=== PATIENT | female | born 1945 | race Caucasian/White ===

== ENCOUNTER 2024-03-15 14:57 | Emergency (ER) | payer MEDICARE, BC ==
[~2024-03-15] VITALS: Ht 165.1 cm; Wt 94.0 kg
[~2024-03-15 14:57] MED LIST: BIMA2.5D EACHEYE; CHOL200016 PO; CYAN100097 PO; ENAL-78 PO; ENOX40SY7 SQ; FISH1CAP15 PO; FURO80TA87 PO; GLYB5TAB7 PO; LEVO88TA39 PO; LORA-512 PO; METF-900 PO; NABU-139 PO; PIOG45TA65 PO; POTA-366 PO; SIMV-42 PO
[2024-03-15 17:43] VITALS: BP 148/83; PULSE 90; RESP 14; O2SAT 99
[2024-03-15 17:56] VITALS: TEMP 98
== END 2024-03-15 17:59 | disposition home or self-care (01) ==
LOC: ER 14:58
DX: S20.212A Contusion of left front wall of thorax, initial encounter (principal); S80.02XA Contusion of left knee, initial encounter; S09.90XA Unspecified injury of head, initial encounter; Z88.2 Allergy status to sulfonamides; Z88.0 Allergy status to penicillin; Z91.018 Allergy to other foods; W01.0XXA Fall on same level from slipping, tripping and stumbling without subsequent striking against object, initial encounter; Y93.89 Activity, other specified; Y92.000 Kitchen of unspecified non-institutional (private) residence as the place of occurrence of the external cause; Y99.8 Other external cause status
CPT/HCPCS: 70450; 71045; 73552; 73564; 73590; 99284